=== PATIENT | female | born 1955 | race Caucasian/White ===

== ENCOUNTER 2024-03-16 14:53 | Outpatient (CLI) | payer OTHER ==
[~2024-03-16 14:53] MED LIST: THYROXIN
== END 2024-03-16 20:28 | disposition home or self-care (01) ==
LOC: SCT 14:53
PROVIDERS: ATTEND Orthopaedic Surgery
DX: M17.12 Unilateral primary osteoarthritis, left knee (principal)

== ENCOUNTER 2024-04-02 08:00 | Day surgery (SDC) | payer OTHER ==
[~2024-04-02] VITALS: Ht 172.7 cm; Wt 106.7 kg
[~2024-04-02 08:00] MED LIST changes: +CEFAZOLIN SOD 2 GM in D5W 50 ML IV ONE
[2024-04-02] MEDS ORDERED: ACETAMINOPHEN 500 MG TABLET ONE (08:08)
[2024-04-02] MEDS: ACETAMINOPHEN 500 MG TABLET PO ONE (08:23)
[2024-04-02] MEDS ORDERED: oxyCODONE HCL 5 MG TABLET PO PRN ×2 (11:00)
[2024-04-02] MEDS ORDERED: traMADol HCL HCL 50 MG TABLET (ULTRAM) PO PRN (11:00)
[2024-04-02] MEDS ORDERED: LORATADINE 10 MG TABLET PO PRN (11:00)
[2024-04-02] MEDS ORDERED: HYDROmorphone 1 MG/ML INJ. CARTRIDGE IVP PRN ×3 (11:00)
[2024-04-02] MEDS ORDERED: ceFAZolin SODIUM 2 GM in D5W 50 ML IV SCH (11:15)
[2024-04-02] MEDS ORDERED: ONDANSETRON HCL 4 MG/2 ML VIAL IVP PRN ×2 (11:45→13:00)
[2024-04-02 12:55] VITALS: PULSE 57; RESP 18; TEMP 97.3; O2SAT 99
[2024-04-02] MEDS ORDERED: ACETAMINOPHEN I.V. 1000 MG 100 ML IV ONE (13:00)
[2024-04-02] MEDS ORDERED: METOCLOPRAMIDE HCL 10 MG/2 ML VIAL IVP PRN ×2 (13:00→15:00)
[2024-04-02] MEDS ORDERED: ACETAMINOPHEN 500 MG TABLET PO SCH (14:00)
[2024-04-02] MEDS ORDERED: BISACODYL 10 MG/SUPPOSITORY RC PRN (15:00)
[2024-04-02] MEDS ORDERED: DIPHENHYDRAMINE HCL 25 MG CAPSULE PO PRN (15:00)
[2024-04-02] MEDS ORDERED: LACTULOSE 20 GM/30 ML UDC PO PRN (15:00)
[2024-04-02] MEDS ORDERED: NS IRRIG SOLN 1000 ML IR ONE (15:30)
[2024-04-02] MEDS ORDERED: ROPIVACAINE HCL/PF 5 MG/ML 0.5% 30 ML VIAL ONE (15:30)
[2024-04-02] MEDS ORDERED: TRANEXAMIC ACID 1,000 MG/10 ML VIAL ONE (15:30)
[2024-04-02] MEDS ORDERED: KETOROLAC TROMETHAMINE 30 MG VIAL ONE (15:30)
[2024-04-02] MEDS ORDERED: WATER FOR IRRIGATION,STERILE 1,000 ML IRRIG.SOLN IR ONE (15:30)
[2024-04-02] MEDS ORDERED: EPINEPHrine HCL 1 MG/ML VIAL ONE (15:30)
[2024-04-02] MEDS ORDERED: MIDAZOLAM HCL 2 MG/2 ML VIAL (VERSED) ONE (15:30)
[2024-04-02] MEDS ORDERED: BUPIVACAINE /PF 0.25% 30 ML VIAL INJ ONE (15:30)
[2024-04-02] MEDS ORDERED: DEXAMETHASONE SOD PHOSPHATE 4 MG/ML VIAL ONE (15:30)
[2024-04-02] MEDS ORDERED: LR 1,000 ML IV.SOLN IV ONE (15:30)
[2024-04-02] MEDS ORDERED: ONDANSETRON HCL 4 MG/2 ML VIAL ONE (15:30)
[2024-04-02] MEDS ORDERED: PROPOFOL 200MG/ 20ML VIAL (DIPRIVAN) IV ONE (15:30)
[2024-04-02] MEDS ORDERED: SEVOFLURANE 15 MIN GAS INH ONE (15:30)
[2024-04-02] MEDS ORDERED: ACETAMINOPHEN I.V. 1000 MG /100 ML IVPB PREMIX IV ONE (15:30)
[2024-04-02] MEDS: HYDROmorphone 1 MG/ML INJ. CARTRIDGE IVP PRN (16:00)
[2024-04-02] MEDS ORDERED: HYDROmorphone 1 MG/ML INJ. CARTRIDGE ONE ×2 (16:03→18:06)
[2024-04-02] MEDS ORDERED: TAMSULOSIN HCL 0.4 MG CAP ONE (16:19)
[2024-04-02] MEDS: TAMSULOSIN HCL 0.4 MG CAP PO ONE (16:20)
[2024-04-02 17:42] VITALS: BP_SYST 154
[2024-04-02] MEDS ORDERED: SENNOSIDES/DOCUSATE SODIUM 1 TAB TABLET(SENOKOT-S) PO SCH (21:00)
[2024-04-03] MEDS ORDERED: ASPIRIN 81 MG TAB.CHEW PO SCH (09:00)
[2024-04-03] MEDS ORDERED: TAMSULOSIN HCL 0.4 MG CAP PO SCH (09:00)
== END 2024-04-02 20:15 | disposition home or self-care (01) ==
LOC: SDS 08:00 → SMU 08:01 → SDS 20:15
PROVIDERS: ATTEND Orthopaedic Surgery
DX: M17.12 Unilateral primary osteoarthritis, left knee (principal); M25.562 Pain in left knee; M25.762 Osteophyte, left knee; I10 Essential (primary) hypertension; E66.01 Morbid (severe) obesity due to excess calories; E03.9 Hypothyroidism, unspecified; E78.5 Hyperlipidemia, unspecified; G89.18 Other acute postprocedural pain; M81.0 Age-related osteoporosis without current pathological fracture; Z68.35 Body mass index [BMI] 35.0-35.9, adult; Z90.49 Acquired absence of other specified parts of digestive tract; Z98.890 Other specified postprocedural states; Z88.0 Allergy status to penicillin; Z79.890 Hormone replacement therapy; Z79.899 Other long term (current) drug therapy
CPT/HCPCS: 27447; 97162; 64447; 73560; 97110; 97530; 97116; 88305; 88311; C1776 ×4; J3490 ×2; J0690; J0696; J1100; J0171; J1885; J2250; J2405; J2704; J1171; J7060 ×2; J7120; C1713 ×2; J0131